=== PATIENT | female | born 1960 | race Caucasian/White ===

== ENCOUNTER 2020-07-02 11:42 | Outpatient (CLI) | payer BC, SELFPAY ==
--- NOTE | 2020-07-02 11:50 | XR_ITS ---
WS: [id number] Left hand, 3 views, 07/02/2020 Clinical Data: LEFT THUMB PAIN, LEFT WRIST PAIN ATTN. THENAR BASE Comparison: None. Findings: No fractures or dislocations are seen. The soft tissues are unremarkable. The joint spaces are normal The left thumb is not remarkable. XR/XR hand LT min 3V* [id number] Impression: Negative left hand.
--- NOTE | 2020-07-02 11:50 | XR_ITS ---
WS: [id number] Left wrist, 3 views, 07/02/2020 Clinical Data: LEFT WRIST PAIN, ATTN. THENAR BASE Comparison: None. Findings: No fractures or dislocations are seen. The carpal bones are intact. There is no soft tissue swelling. The distal radius and ulna are not remarkable. The base of the left thumb shows no abnormalities. XR/XR wrist LT min 3V* [id number] Impression: Negative left wrist.
== END 2020-07-02 11:43 | disposition home or self-care (01) ==
PROVIDERS: PCP Family Medicine; Visit Provider Family Medicine
DX: M25.532 Pain in left wrist (principal); M79.645 Pain in left finger(s)
CPT/HCPCS: 73110; 73130

== ENCOUNTER 2022-07-13 07:11 | Outpatient (CLI) | payer OTHER, SELFPAY ==
--- NOTE | 2022-07-13 08:01 | MM_ITS ---
WS: [id number] Exam: [place] [id number] Date/Time of Exam: 07/13/2022 8:01 AM Reason For Exam: Z12.39 - Encounter for other screening for malignant neop... VIEWS: MLO and CC views both breasts. 3D digital tomosynthesis is also included in this exam. Comparison made with prior exam of 10/13/2016, 05/11/2018, 05/28/2019, 06/02/2020, 06/28/2021.. Findings: There was no sign of mass, architectural distortion or suspicious calcification in either breast. Sc attered fibroglandular densities MM/[place] [id number] Impression: BI-RADS: 2-Benign FOLLOW-UP: 1 Year Follow-up This mammogram was also analyzed by the Computer Aided Detection System R2 Imag e File Clerk.
== END 2022-07-13 07:12 | disposition home or self-care (01) ==
LOC: RAD 07:14
PROVIDERS: PCP Family Medicine; Visit Provider Obstetrics & Gynecology
DX: Z12.31 Encounter for screening mammogram for malignant neoplasm of breast (principal)
CPT/HCPCS: 77063; 77067

== ENCOUNTER 2022-08-04 06:57 | Outpatient (CLI) | payer OTHER, SELFPAY ==
--- NOTE | 2022-08-04 07:09 | US_ITS ---
WS: [id number] ULTRASOUND SOFT TISSUES RIGHT axilla. HISTORY: N64.4 - Mastodynia COMPARISON: None available. TECHNIQUE: 2-D and color Doppler imaging is submitted. Ultrasound is directed to the RIGHT axilla towards the axillary tail in the area of pain. There are a few small benign-appearing lymph nodes identified. No soft tissue mass identified. No cyst or distor tion. US/US soft tissue/extremity [id number] IMPRESSION: Negative ultrasound RIGHT axilla/axillary tail. Benign lymph nodes.
== END 2022-08-04 06:58 | disposition home or self-care (01) ==
PROVIDERS: PCP Family Medicine; Visit Provider Obstetrics & Gynecology
DX: N64.4 Mastodynia (principal)
CPT/HCPCS: 76882

== ENCOUNTER 2023-08-17 13:05 | Outpatient (CLI) | payer OTHER, SELFPAY ==
--- NOTE | 2023-08-17 13:12 | MM_ITS ---
WS: [id number] BILATERAL SCREENING DIGITAL TOMOSYNTHESIS MAMMOGRAM WITH CAD HISTORY: SCREENING COMPARISON: 07/13/2022, 06/28/2021 and 05/28/2019 Bilateral CC and MLO views with tomosynthesis and synthetic mammography submitted. Computer aided det ection analyzed. Breast composition: There are scattered areas of fibroglandular density. No suspicious masses, microc alcifications or architectural distortion. Long-term stability of 5 mm mass in the posterior RIGHT br east with a calcification. There are no suspicious or new masses. No calcifications. IMPRESSION: MM/[place] [id number] BI-RADS: 2-Benign FOLLOW UP: 1 Year Follow-up
== END 2023-08-17 13:06 | disposition home or self-care (01) ==
LOC: RAD 13:05
PROVIDERS: PCP Family Medicine; Visit Provider Family Medicine
DX: Z12.31 Encounter for screening mammogram for malignant neoplasm of breast (principal)
CPT/HCPCS: 77063; 77067

== ENCOUNTER 2023-10-17 08:57 | Outpatient (CLI) | payer OTHER, SELFPAY ==
--- NOTE | 2023-10-17 09:30 | CT_ITS ---
WS: [id number] CT ABDOMEN PELVIS TECHNIQUE: Noncontrast CT of the abdomen and contrast-enhanced CT of the abdomen and pelvis with franc nal and sagittal reformatted images. 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 COMPARISON: None. DLP: 1126.[address] scans at [facility] use at least one of these dose optimization techniques: automated e xposure control; mA and/or kV adjustment per patient size (includes targeted exams where dose is matc hed to clinical indication); or iterative reconstruction. FINDINGS: Diffuse fatty infiltration liver. Normal portal vein and splenic vein. Normal pancreas. Normal spleen . Small esophageal hernia. Prior cholecystectomy. Slight hazy atelectasis in the lung bases. Slight a nterolisthesis L4 on L5. Adrenal glands are normal. Normal renal parenchymal enhancement. No hydronep hrosis in either kidney. Normal caliber abdominal aorta. Mild aortic calcification. Celiac and SMA ar e patent. Sigmoid diverticulosis. Diffuse thickening with inflammatory stranding and edema involving the sigmoi d colon compatible with acute diverticulitis. This should be followed up to resolution to exclude maggie plasm. Inflammatory changes in the LEFT lower quadrant. No evidence of drainable abscess or fluid col lection. No evidence of small or large bowel obstruction. Anteverted uterus. No abdominal or pelvic l ymphadenopathy. Tiny fat-containing umbilical hernia. Mild lumbar curve. No other suspicious findings . CT/CT abdomen pelvis wo/w [id number] IMPRESSION: 1. Findings compatible with acute sigmoid diverticulitis in the LEFT lower vega drant. Recommend follow-up to resolution to exclude underlying neoplasm in a pa tient of this age. 2. No evidence of drainable abscess or fluid collection. 3. Diffuse fatty infiltration of the liver. 4. Prior cholecystectomy. 5. Small esophageal hernia.
[2023-10-17 09:42] LABS: Blood Urea Nitrogen 13 mg/dL (8-23); Glomerular Filtration Rate 56.4 mL/min (90-130)
[2023-10-17] MEDS: iohexol 350 mg/mL 500 mL Btl (per mL) IV (09:52)
== END 2023-10-17 08:58 | disposition home or self-care (01) ==
LOC: RAD 08:59
PROVIDERS: PCP Family Medicine; Visit Provider Family Medicine
DX: Q74.2 Other congenital malformations of lower limb(s), including pelvic girdle (principal); K76.0 Fatty (change of) liver, not elsewhere classified; K44.9 Diaphragmatic hernia without obstruction or gangrene; Z98.890 Other specified postprocedural states; J98.11 Atelectasis; M43.16 Spondylolisthesis, lumbar region; K57.30 Diverticulosis of large intestine without perforation or abscess without bleeding; N85.4 Malposition of uterus; K42.1 Umbilical hernia with gangrene
CPT/HCPCS: 74178; 82565; 84520; Q9967

== ENCOUNTER 2023-12-11 14:43 | Outpatient (CLI) | payer OTHER, SELFPAY ==
[2023-12-11] MEDS: iohexol 350 mg/mL 500 mL Btl (per mL) PO (15:03)
[2023-12-11 15:30] LABS: Blood Urea Nitrogen 13 mg/dL (8-23); Glomerular Filtration Rate 85.1 mL/min (90-130)
[2023-12-11] MEDS: iohexol 350 mg/mL 500 mL Btl (per mL) IV (15:49)
--- NOTE | 2023-12-11 16:00 | CT_ITS ---
WS: [id number] CT ABDOMEN AND PELVIS WITH CONTRAST HISTORY: K57.92 - Diverticulitis of intestine, part unspecified, w... TECHNIQUE: Imaging performed of the abdomen and pelvis with IV contrast. Single phase imaging of the abdomen. Coronal and sagittal reformats are submitted. All CT scans at [facility] use at [address] one of these dose optimization techniques: automated exposure control; mA and/or kV adjustment per patient size (includes targeted exams where dose is matched to clinical indication); or iterative re construction. IV CONTRAST: Omnipaque 350; 100 mL IV. Oral contrast: Yes. DLP: 571.86 mGy.cm COMPARISON: 10/17/2023 Lower thorax: Lung bases are clear. Heart is normal size. No hiatal hernia. Liver/biliary system: Normal size with no intrahepatic dilatation. Normal portal vein. Gallbladder: Prior cholecystectomy. Normal common bile duct. Pancreas: Normal size pancreas and pancreatic duct. No adjacent inflammation. Spleen: Normal size spleen. No mass or infarct. Adrenal glands: Normal. Right kidney: Normal. Left kidney: Normal. Aorta: Normal. Lymphadenopathy: None. Free fluid: None. GI tract: Stomach is well distended with oral contrast. No small bowel obstruction. Mild diffuse cons tipation. No appendicitis. Mild sigmoid diverticular burden. Previously described acute diverticuliti s has resolved. There is no underlying mass or obstruction identified. Abdominal wall: Fat containing umbilical hernia. Pelvis: No free fluid or adenopathy within the pelvis. Bones: Unremarkable. CT/CT abdomen pelvis w con* [id number] IMPRESSION: 1. Interval complete resolution of the previously described sigmoid diverticul itis. No underlying soft tissue mass or obstruction. 2. No diverticular abscess or free fluid. 3. Prior cholecystectomy. 4. Mild diffuse constipation.
== END 2023-12-11 14:44 | disposition home or self-care (01) ==
LOC: RAD 14:46
PROVIDERS: PCP Family Medicine; Visit Provider Family Medicine
DX: K57.92 Diverticulitis of intestine, part unspecified, without perforation or abscess without bleeding (principal); Z98.890 Other specified postprocedural states; K42.9 Umbilical hernia without obstruction or gangrene
CPT/HCPCS: 74177; 82565; 84520; Q9967

== ENCOUNTER 2024-05-20 08:04 | Outpatient (CLI) | payer OTHER, SELFPAY ==
[2024-05-20 09:03] LABS: Alanine Aminotransferase < 5 U/L (0-33); Albumin Level 4.2 g/dL (3.5-5.2); Alkaline Phosphatase 81 U/L (35-105); Anion Gap 14.5 (5-19); Aspartate Amino Transferase 13 U/L (0-32); Blood Urea Nitrogen 16 mg/dL (8-23); Calcium 9.6 mg/dL (8.5-10.5); Carbon Dioxide 25 mmol/L (22-29); Chloride 104 mmol/L (98-107); Chol HDL Ratio 4.32 mg/dL (0.0-4.40); Cholesterol 268 mg/dL (0-200); Globulin 2.5 g/dL (1.3-4.6); Glomerular Filtration Rate 85.1 mL/min (90-130); Glucose 89 mg/dL (65-115); HDL Cholesterol 62 mg/dL (60-100); LDL Cholesterol Calculated 186 mg/dL (50-129); Osmolality Calculated 289 mOsm/kg (285-295); Potassium 4.5 mmol/L (3.5-5.1); Sodium 139 mmol/L (136-145); Total Bilirubin 0.5 mg/dL (0.15-1.2); Total Protein 6.7 g/dL (6.6-8.7); Triglycerides 99 mg/dL (0-150); VLDL Cholestrol Calculation 20 mg/dL (0-30)
== END 2024-05-20 08:05 | disposition home or self-care (01) ==
LOC: LAB 08:05
PROVIDERS: PCP Family Medicine; Visit Provider Family Medicine
DX: K76.0 Fatty (change of) liver, not elsewhere classified (principal); Z00.00 Encounter for general adult medical examination without abnormal findings
CPT/HCPCS: 36415; 80053; 80061